=== PATIENT | female | born 1955 | race American Indian/Alaskan Native ===

== ENCOUNTER 2019-01-28 10:47 | Outpatient (CLI) | payer OTHER ==
--- NOTE | 2019-01-28 14:07 | XRay Report ---
LEFT SHOULDER, 3 views: History: Diabetes mellitus type 2 arthritis back Routine views demonstrate normal bony and soft tissue structures with normal joint alignment of the shoulder. Borderline bone mineralization. IMPRESSION: Unremarkable left shoulder films.
--- NOTE | 2019-01-28 14:07 | XRay Report ---
LUMBOSACRAL SPINE, 3 VIEWS: History: Diabetes mellitus type 2, arthritis back Findings: The vertebral bodies, disk spaces and posterior elements are intact. No compression deformity or malalignment. The SI joints are symmetric and unremarkable. Impression: Unremarkable lumbar spine films.
== END 2019-01-28 10:48 | disposition home or self-care (01) ==
LOC: XRAY 10:47
PROVIDERS: ATTEND Internal Medicine
DX: Z02.71 Encounter for disability determination (principal); E11.9 Type 2 diabetes mellitus without complications
CPT/HCPCS: 72100

== ENCOUNTER 2019-11-08 08:08 | Day surgery (SDC) | payer OTHER ==
[~2019-11-08 08:08] MED LIST: SODIUM CHLORIDE 0.9% 1000 ML 1,000 ML IV SCH
[2019-11-08] MEDS ORDERED: LIDOCAINE MPF (2%) 20 MG/1 ML VIAL 5 ML ONE (08:30)
[2019-11-08] MEDS ORDERED: PROPOFOL 200 MG/20 ML VIAL IV ONE ×2 (09:08)
--- NOTE | 2019-11-08 09:11 | Anesthesia Consultation ---
Anesthesia Consult and Med Hx Date of service: 11/08/19 - Airway Anesthetic Teeth Evaluation: Partials ROM Head & Neck: Adequate Mental/Hyoid Distance: Adequate Mallampati Class: Class I Intubation Access Assessment: Good - Pulmonary Exam CTA: Yes - Cardiac Exam Cardiac Exam: RRR - Pre-Operative Health Status ASA Pre-Surgery Classification: ASA2 Proposed Anesthetic Plan: MAC - Pulmonary Hx Smoking: Yes Hx Sleep Apnea: (HIGH RISK RETA) - Cardiovascular System Hx Hypertension: Yes - Central Nervous System Hx Psychiatric Problems: Yes (Anxiety/Depression) - Endocrine Hx Renal Disease: No Hx Insulin Dependent Diabetes: Yes (Blood Glucose- 133mg/dl) - Other Systems Hx Alcohol Use: Yes (Occasionally) Hx Substance Use: No - Additional Comments Anesthesia Medical History Comments: Denied anesthesia related complication
--- NOTE | 2019-11-08 09:12 | Anesthesia Day of Surgery ---
Anesthesia Day of Surgery - Day of Surgery Patient Examined: Yes Patient H&P Reviewed: Yes Patient is NPO: Yes
--- NOTE | 2019-11-08 09:44 | Short Stay Summary ---
Short Stay Documentation Date of service: 11/08/19 Narrative H&P: The patient presents for her first screening colonoscopy - History Past Medical History: diabetes, hypertension Past Surgical History: No surgical history Social history: no significant social history - Allergies and Medications Current Medications: Allergies No Known Allergies Allergy (Unverified 01/28/19 10:47) Home Medications Medication Instructions Recorded Confirmed Last Taken Type Metformin HCl [metFORMIN] 1,000 mg PO DAILY 11/08/19 11/08/19 11/07/19 11:00 History Active Medications Sodium Chloride (Nacl 0.9% 1000 Ml) 1,000 mls @ 50 mls/hr IV DIRECT ARELI Last Admin: 11/08/19 09:00 Dose: 50 mls/hr Documented by: - Physical exam General appearance: no acute distress, well-nourished Integumentary: no rash, no growths, no abnormal pigmentation HEENT: Atraumatic, PERRLA, EOMI, Mucous membr. moist/pink Lungs: Clear to auscultation, Normal air movement Breasts: deferred Heart: Regular rate, Normal S1, Normal S2, No murmurs Gastrointestinal: normoactive bowel sounds, no tenderness, no distended, no masses, no guarding, no organomegaly Female Genitourinary: deferred Rectal Exam: deferred Extremities: no ischemia, pulses intact, pulses symmetrical, No edema, normal temperature, normal color, Full ROM Neurological: no Normal gait, no Normal speech, no Strength at 5/5 X4 ext, no Normal tone, no Sensation intact, no Cranial nerves 3-12 NL - Brief post op/procedure progress note Date of procedure: 11/08/19 Procedure: see dictation. Findings: see dictation Estimated blood loss: none Pathology: none Condition: stable - Disposition Condition at discharge: Good Disposition: DC-01 TO HOME OR SELFCARE - Discharge Diagnoses (1) Colon cancer screening Status: Acute Short Stay Discharge Plan Activity: other (No driving for 24 hours.) Weight Bearing Status: Weight Bear as Tolerated Diet: diabetic Follow up with: ELIZABETH AMADOR MD [Primary Care Provider] - 7 Days
--- NOTE | 2019-11-08 09:50 | Operative Report ---
Operative Report Operative Report: Date of procedure: 11/08/2019 Preprocedure diagnosis: Colon cancer screening Post procedure diagnosis: Mild scattered diverticulosis Procedure: Colonoscopy to the cecum Endoscopist: Dr. Boo Anesthesia: Monitored anesthesia care per anesthesia department Estimated blood loss: 0 Medications: Monitored anesthesia care. See separate report by anesthesia for details. After careful discussion of the nature and purpose of the procedure as well as details of the technique risks benefits and alternatives the patient gave consent. Please see recent history and physical from the office. The patient was placed in the left lateral decubitus position and medicated per anesthesia. A rectal exam was performed sphincter tone was normal there were no masses palpable. The Olympus colonoscope was passed transanally and advanced under continuous direct vision without difficulty to the cecum. The colon was well prepared. The cecum was normal. The ascending colon feels scattered diverticula but otherwise was normal and on forward and retroflexed views. The transverse colon, descending colon, and sigmoid colon revealed a few scattered diverticula. The rectum was normal on forward and retroflexed views. The procedure was well-tolerated overall and the patient was observed in recovery. Conclusions: Mild scattered diverticulosis, otherwise normal study. Plan: Repeat colonoscopy in 10 years, sooner if clinically indicate. Signed electronically: Tal Boo M.D.
[2019-11-08 10:08] VITALS: BP 107/51
--- NOTE | 2019-11-08 10:10 | Post Anesthesia Evaluation ---
- Post Anesthesia Evaluation Patient Participated: Yes Airway Patent: Yes Stable Respiratory Function: Yes Nausea/Vomiting: No Temp > 96.8F: Yes Pain Manageable: Yes Adequeate Hydration: Yes Anesthesia Complications: No
== END 2019-11-08 08:09 | disposition home or self-care (01) ==
LOC: GIO 08:08
PROVIDERS: ATTEND Internal Medicine Gastroenterology
DX: Z12.11 Encounter for screening for malignant neoplasm of colon (principal); K57.30 Diverticulosis of large intestine without perforation or abscess without bleeding; I10 Essential (primary) hypertension; M19.90 Unspecified osteoarthritis, unspecified site; E11.9 Type 2 diabetes mellitus without complications; F32.9 Major depressive disorder, single episode, unspecified; F41.9 Anxiety disorder, unspecified; Z87.891 Personal history of nicotine dependence; Z79.84 Long term (current) use of oral hypoglycemic drugs; Z72.89 Other problems related to lifestyle; Z98.890 Other specified postprocedural states
CPT/HCPCS: 45378; 82962; J2704; J7030